=== PATIENT | female | born 1990 | race Caucasian/White ===

== ENCOUNTER 2019-02-25 09:12 | Emergency (ER) | payer SELFPAY ==
[~2019-02-25] VITALS: Ht 160 cm; Wt 104.6 kg
[~2019-02-25 09:12] MED LIST: PRENATAL ONE T1 EACH PO; [UNRECOGNIZED DRUG - OTHER]
[2019-02-25] MEDS ORDERED: predniSONE 20 MG TABLET PO ONE (10:00)
--- NOTE | 2019-02-25 10:09 | RAD ---
Sacrococcygeal spine, 3 views, 02/25/2019: HISTORY: Pain No fracture or destructive bony lesion is seen. An IUD is projected over the pelvis and of the midline. IMPRESSION: No significant sacrococcygeal abnormality is detected. Electronically signed by: Wesley Arrieta MD (02/25/2019 10:06 AM) [facility]
--- NOTE | 2019-02-25 10:15 | PHYS DOC ---
Past History Past Medical History: Arthritis, Other Additional Past Medical Histor: Ear infections. Wears glasses. Past Surgical History: No Surgical History Additional Past Surgical Histo: Tubes Smoking: Cigarettes, Less than 1pk/day Alcohol Use: None Drug Use: None Social History Narrative: hx THC Adult General Chief Complaint Chief Complaint: BACK PAIN OR INJURY HPI HPI Patient is a 28 year old female who presents with complaint of tailbone pain. Patient symptoms have been present over the past 2 days. Denies any known injury. Patient does state that she has been wearing a leg brace to the right lower extremity which has altered her gait over the past 2 weeks. States that the pain is concentrated to the tailbone area. Has been taking Aleve with no relief in symptoms. Denies any associated loss of bowel or bladder control, saddle anesthesia, footdrop, or numbness in the lower extremities. Denies radiation of pain from the tailbone area. Review of Systems Review of Systems Constitutional: Denies fever or chills [] Eyes: Denies change in visual acuity, redness, or eye pain [] HENT: Denies nasal congestion or sore throat [] Respiratory: Denies cough or shortness of breath [] Cardiovascular: Denies chest pain or edema[] GI: Denies abdominal pain, nausea, vomiting, bloody stools or diarrhea [] : Denies dysuria or hematuria [] Musculoskeletal: Pain to tailbone[] Integument: Denies rash or skin lesions [] Neurologic: Denies headache, focal weakness or sensory changes [] All other systems were reviewed and found to be within normal limits, except as documented in this note. Current Medications Current Medications Current Medications Medications (Trade) Dose Ordered Sig/[facility] Start Time Stop Time Status Last Admin Dose Admin Prednisone (Prednisone) 60 mg 1X ONCE 02/25/19 10:00 02/25/19 10:01 UT Allergies Allergies Allergies Coded Allergies Type Severity Reaction Last Updated Verified nickel Allergy Intermediate Hives 02/25/19 Yes Physical Exam Physical Exam Constitutional: Alert, afebrile, appears in moderate discomfort. [] HENT: Normocephalic, atraumatic, bilateral external ears normal, oropharynx moist, no oral exudates, nose normal. [] Eyes: PERRLA, EOMI, conjunctiva normal, no discharge. [] Neck: Normal range of motion, no tenderness, supple, no stridor. [] Cardiovascular:Heart rate regular rhythm, no murmur [] Lungs & Thorax: Bilateral breath sounds clear to auscultation [] Abdomen: Bowel sounds normal, soft, no tenderness, no masses, no pulsatile masses. [] Skin: Warm, dry, no erythema, no rash. [] Back: Point midline tenderness to distal sacrum and coccyx, no CVA tenderness, no flank ecchymosis. [] Extremities: No tenderness, no cyanosis, no clubbing, ROM intact, no edema. [] Neurologic: Alert and oriented X 3, normal motor function, normal sensory function, no focal deficits noted. [] Current Patient Data Vital Signs Vital Signs Date Time Temp Pulse Resp B/P (MAP) Pulse Ox O2 Delivery O2 Flow Rate FiO2 02/25/19 09:37 98.3 104 18 98 Room Air Lab Results Laboratory Tests Test 02/25/19 10:47 02/25/19 10:58 Urine Collection Type Unknown Urine Color Yellow Urine Clarity Hazy Urine pH 6.5 Urine Specific [place] 1.015 Urine Protein Neg Urine Glucose (UA) Neg mg/dL Urine Ketones (Stick) Neg mg/dL Urine Blood Neg Urine Nitrite Neg Urine Bilirubin Neg Urine Urobilinogen Dipstick 0.2 mg/dL Urine Leukocyte Esterase Trace Urine RBC 0 /HPF Urine WBC Rare /HPF Urine Squamous Epithelial Cells Few /LPF Urine Bacteria Few /HPF Urine Mucus Slight /LPF Urine Sperm Present /HPF Bedside Urine HCG, Qualitative hcg negative Current Medications Medications (Trade) Dose Ordered Sig/Radha Route PRN Reason Start Time Stop Time Status Last Admin Dose Admin Prednisone (Prednisone) 60 mg 1X ONCE PO 02/25/19 10:00 02/25/19 10:01 DC 02/25/19 10:30 EKG EKG Not performed[] Radiology/Procedures Radiology/Procedures [address] [address] IMAGING REPORT Signed PATIENT: SAMAN REYES ACCOUNT: [id number] : 1990 LOCATION: ER AGE: 28 SEX: F EXAM STATUS: REG ER ORD. PHYSICIAN: BIMAL BELLAMY MD REASON: reports severe pain at tailbone times 2 days, no known injury PROCEDURE: SACRUM & COCCYX 3V Sacrococcygeal spine, 3 views, 02/25/2019: HISTORY: Pain No fracture or destructive bony lesion is seen. An IUD is projected over the pelvis and of the midline. IMPRESSION: No significant sacrococcygeal abnormality is detected. Electronically signed by: Wesley Arrieta MD (02/25/2019 10:06 AM) [facility] DICTATED AND SIGNED BY: WESLEY ARRIETA MD DATE: 02/25/19 1006 CC: BIMAL BELLAMY MD; PCP,NO ~ [] Course & Med Decision Making Course & Med Decision Making Pertinent Labs and Imaging studies reviewed. (See chart for details) X-ray show no evidence of fracture and urinalysis is unremarkable. Patient's symptoms appear consistent with soft tissue injury near coccyx. This may be secondary to recent alteration in gait due to wearing knee brace. Patient started on prednisone in the emergency department. Will continue on Medrol and Flexeril for presumed muscle strain. Advised follow-up with primary doctor in 1 week if symptoms are not improving and return to the emergency department for any worsening symptoms. Patient was understanding and in agreement with treatment plan. Dragon Disclaimer Dragon Disclaimer This electronic medical record was generated, in whole or in part, using a voice recognition dictation system. Departure Departure: Impression: Primary Impression: Coccygeal pain, acute Disposition: 01 HOME, SELF-CARE Condition: STABLE Referrals: PCP,NO (PCP) Patient Instructions: Tailbone Injury, [id number] Additional Instructions: X-rays of your tailbone were negative for fracture at today's visit. Your pain may be due to soft tissue strain brought on by the brace you have been wearing which could've affected your normal gait, leading to strain of muscles around her tailbone. Do not use ibuprofen or Aleve while taking Medrol. You may res ume Aleve after Medrol has been completed. Follow-up with your primary doctor in 1 week for reevaluation as she may need to have additional treatments including physical therapy to help your pain resolved. Please return to the emergency department for any worsening or severe symptoms. Scripts Cyclobenzaprine Hcl (CYCLOBENZAPRINE HCL) 10 Mg Tablet 1 TAB PO TID PRN for MUSCLE PAIN, #30 TAB Prov: BIMAL BELLAYM MD 02/25/19 Methylprednisolone (MEDROL) 4 Mg Tab.ds.pk 1 PKG PO UD, #1 PKG Prov: BIMAL BELLAMY MD 02/25/19 BIMAL BELLAMY MD February 25, 2019 10:15
[2019-02-25] MEDS ORDERED: CYCL-331 PO (10:26)
[2019-02-25] MEDS ORDERED: METH4TAB2 PO (10:26)
[2019-02-25 11:21] LABS: BACTERIA,URINE FEW /HPF (0-FEW); BILIRUBIN,URINE NEG (NEG); CLARITY,URINE HAZY; COLOR,URINE YELLOW; GLUCOSE,URINE NEG (NEG); NITRITE,URINE NEG (NEG); RBC,URINE 0 /HPF (0-2); SPERM,URINE PRESENT /HPF; SQUAMOUS EPITHELIAL CELL,UR FEW /LPF; UROBILINOGEN,URINE 0.2 mg/dL (0.2 mg/dL); WBC,URINE RARE /HPF (0-4)
[2019-02-25 11:43] VITALS: BP 130/74
== END 2019-02-25 11:35 | disposition home or self-care (01) ==
LOC: ER 09:12
DX: M53.3 Sacrococcygeal disorders, not elsewhere classified (principal); M19.90 Unspecified osteoarthritis, unspecified site; F17.210 Nicotine dependence, cigarettes, uncomplicated; Z88.8 Allergy status to other drugs, medicaments and biological substances
CPT/HCPCS: 72220; 81001; 81025; 87086; 99285; J7512